=== PATIENT | female | born 1935 | race Caucasian/White ===

== ENCOUNTER 2017-02-24 08:08 | Emergency (ER) | payer OTHER ==
[~2017-02-24] VITALS: Ht 160 cm; Wt 65.0 kg
[~2017-02-24 08:08] MED LIST: ADULT LOW DOSE81 M1 PO; ALENDRONATE SOD70 MG PO; CALCITRATE + D1 EACH PO; EYE GUARD PLUS; OMEGA 3 1,0001 EACH PO
[2017-02-24] MEDS ORDERED: FLEXERIL10 MG PO (10:48)
[2017-02-24] MEDS ORDERED: NAPROSYN500 MG PO (10:48)
[2017-02-24 11:16] VITALS: BP 158/96
== END 2017-02-24 11:17 | disposition home or self-care (01) ==
LOC: EME 08:08
DX: M25.551 Pain in right hip (principal); S39.012A Strain of muscle, fascia and tendon of lower back, initial encounter; X58.XXXA Exposure to other specified factors, initial encounter; Y93.H2 Activity, gardening and landscaping; M79.604 Pain in right leg; G89.29 Other chronic pain; Z96.641 Presence of right artificial hip joint
CPT/HCPCS: 73502; 99281; 99283